=== PATIENT | female | born 2000 | race Caucasian/White ===

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

== ENCOUNTER 2022-06-24 13:17 | Emergency (ER) | payer SELFPAY ==
[2022-06-24] MEDS ORDERED: Lidocaine 1% MPF 2 ML VIAL ONE (13:34)
[2022-06-24] MEDS ORDERED: cefTRIAXone\\ROCEPHIN 500 MG VIAL ONE (13:34)
[2022-06-24 20:40] LABS: Chlam.trachomatis by PCR,Urine DETECTED (NotDetected)
== END 2022-06-24 13:58 | disposition home or self-care (01) ==
LOC: ERS 13:17
DX: N76.0 Acute vaginitis (principal); F17.210 Nicotine dependence, cigarettes, uncomplicated
CPT/HCPCS: 87491; 87591; 96372; 99283; J0696